=== PATIENT | female | born 1965 | race Caucasian/White ===

== ENCOUNTER 2016-05-29 11:30 | Emergency (ER) | payer OTHER, MEDICAID ==
--- NOTE | 2016-05-29 12:07 | Emergency Department Record ---
History of Present Illness - General Chief Complaint: Difficulty Breathing Stated Complaint: RENEE Time Seen by Provider: 05/29/16 12:07 Source: Patient Mode of Arrival: Ambulatory Limitations: No limitations - History of Present Illness Initial Comments: The patient is here due to a 3 day hx of cough, congestion, sputum production and SOB intermittently. She also has a runny nose and ST. The patient has been ill for 3 days and was having a lot of SOB earlier today but that has gone now. Complaint: Cough Onset/Timin -: Days(s) Consistency: Constant Improves With: Nothing Worsens With: Coughing, Exertion Context: Recent URI Associated Symptoms: Denies other symptoms Treatments Prior to Arrival: None - Related Data Home Oxygen Therapy: No Home Medications Medication Instructions Recorded Confirmed Last Taken Diltiazem HCl [Cardizem] 120 mg PO DAILY 03/19/16 05/29/16 03/19/16 Duloxetine HCl [Cymbalta] 60 mg PO DAILY 03/19/16 05/29/16 03/19/16 Hydrochlorothiazide [Hctz 12.5MG] 12.5 mg PO DAILY 03/19/16 05/29/16 03/19/16 Methylphenidate HCl [Concerta] 36 mg PO DAILY 03/19/16 05/29/16 03/19/16 Omeprazole [Prilosec] 20 mg PO DAILY 03/19/16 05/29/16 03/19/16 Mirtazapine [Mirtazapine] 15 mg PO QHS 05/29/16 05/29/16 05/28/16 Previous Rx's Medication Instructions Recorded Meclizine HCl [Antivert] 25 mg PO Q8H #20 tablet 03/19/16 Mupirocin [Bactroban] 1 apply TP TID #1 tube 03/19/16 Albuterol Sulfate [Proair Hfa] 2 puff IH QID PRN #1 inhaler 05/29/16 Benzonatate [Tessalon] 1 cap PO Q8H PRN #15 cap 05/29/16 Doxycycline Monohydrate [Mondoxyne 100 mg PO BID #14 capsule 05/29/16 Nl] Prednisone [Prednisone 20Mg] 40 mg PO DAILY #10 tab 05/29/16 Allergies Allergy/AdvReac Type Severity Reaction Status Date / Time Sulfa (Sulfonamide Allergy SWELLING Verified 03/19/16 16:40 Antibiotics) OF THE FACE Travel Screening - Travel/Exposure Within Last 30 Days Have you traveled within the last 30 days?: No - Travel/Exposure Within Last Year Have you traveled outside the [place] in the last year?: No - Additonal Travel Details Have you been exposed to anyone with a communicable illness?: No - Travel Symptoms Symptom Screening: None Review of Systems Constitutional: Denies: Chills, Fever Eyes: Denies: Eye discharge Respiratory: Reports: Cough, Dyspnea Cardiovascular: Denies: Chest pain Past Medical History - SOCIAL HISTORY Smoking Status: Never smoker Alcohol Use: Occassional Drug Use: None - RESPIRATORY Hx Respiratory Disorders: Yes - CARDIOVASCULAR Hx Cardio Disorders: Yes Hx Abnormal EKG: Yes Hx Chest Pain: Yes (last week) Hx Hypertension: Yes Hx Irregular Heartbeat: Yes (AFib) Comment:: last stress test/EKG/health analyst visit approx 5 yrs ago - NEURO Hx Neuro Disorders: Yes Hx Headaches: Yes Hx of Migraines: Yes - GI Hx GI Disorders: Yes Hx Abdominal Pain: Yes Hx Reflux: Yes Hx Nausea/Vomiting: Yes Comment:: c/o abn bowel habits - Hx Genitourinary Disorders: No Comment:: hyst - ENDOCRINE Hx Endocrine Disorders: No - MUSCULOSKELETAL Hx Musculoskeletal Disorders: Yes Hx Arthritis: Yes - PSYCH Hx Psych Problems: Yes Hx Anxiety: Yes Hx Depression: Yes - HEMATOLOGY/ONCOLOGY Hx Hematology/Oncology Disorders: Yes Hx Blood Transfusions: Yes (at childbirth) Family Medical History Any Significant Family History?: No Physical Exam - General General Appearance: Alert, Oriented x3, Cooperative, No acute distress - Head Head exam: Atraumatic, Normocephalic, Normal inspection - Eye Eye exam: Normal appearance, PERRL - ENT ENT exam: TM's normal bilaterally. negative: Normal exam, Normal orophraynx Nasal Exam: Discharge. negative: Normal inspection Throat exam: Tonsillar erythema. negative: Normal inspection, Tonsillomegaly, Tonsillar exudate - Neck Neck exam: Normal inspection, Full ROM. negative: Lymphadenopathy, Meningismus , Tenderness - Respiratory Respiratory exam: Normal lung sounds bilaterally. negative: Decreased breath sounds, Respiratory distress, Rhonchi, Stridor, Wheezes - Cardiovascular Cardiovascular Exam: Regular rate, Normal rhythm, Normal heart sounds - Extremities Extremities exam: Normal inspection, Full ROM, Normal capillary refill. negative: Tenderness - Neurological Neurological exam: Alert, Normal gait. negative: Abnormal gait, Motor sensory deficit Course Vital Signs 05/29/16 11:47 Temperature 99.2 F Pulse Rate 96 H Respiratory 18 Rate Blood Pressure 125/89 Pulse Ox 97 - Reevaluation(s) Reevaluation #1: The patient is doing well. She is still coughing but having no trouble breathing at this time. On exam her lungs are clear. I did explain to her the Flu test is Pos. She is concerned about the very productive sputum so we will provide an Abx for home if she is not better in 2-3 days. 05/29/16 13:44 Medical Decision Making - Data Complexity MDM Data: Labs Ordered and/or Reviewed (Flu A pos.), X-Ray Ordered and/or Reviewed - Radiology Data Radiology results: Report reviewed (CXR: Neg.) Disposition Disposition: Discharge Clinical Impression: Influenza A Disposition: Home, Self-Care Condition: (1) Good Instructions: Influenza (ED) Additional Instructions: Please use Tylenol and Motrin for fever and body aches. Take the Albuterol, Tessalon and Prednisone as directed. Please start the doxy if not better in 2 days or for a worsening cough. Prescriptions: Doxycycline Monohydrate [Mondoxyne Nl] 100 mg PO BID #14 capsule Prednisone [Prednisone 20Mg] 40 mg PO DAILY #10 tab Albuterol Sulfate [Proair Hfa] 2 puff IH QID PRN #1 inhaler PRN Reason: Cough And Difficulty Breathing Benzonatate [Tessalon] 1 cap PO Q8H PRN #15 cap PRN Reason: Cough Forms: Patient Portal Access Time of Disposition: 13:47
[2016-05-29] MEDS ORDERED: IPRATROPIUM/ALBUTEROL (0.5MG/3MG) NEB INH ONE (12:16)
[2016-05-29 12:51] LABS: INFLUENZA A POSITIVE (NEGATIVE); INFLUENZA B NEGATIVE (NEGATIVE)
--- NOTE | 2016-06-02 04:21 | RADIOLOGY REPORT ---
EXAM: CHEST 2 VIEWS HISTORY: PATIENT HAS CHRONIC COUGH AND CHEST TIGHTNESS. SHORTNESS OF BREATH FOR THREE DAYS. TECHNIQUE: Two views of the chest are provided along comparison study dated . FINDINGS: The cardiomediastinal silhouette is within normal limits for size and contour. Lluvia appear unremarkable. There is no radiographic evidence of a focal infiltrate or pleural effusion. No pneumothorax is noted. IMPRESSION: NO RADIOGRAPHIC EVIDENCE OF AN ACUTE INTRATHORACIC PROCESS. JOB NUMBER: [id number] [facility]
== END 2016-05-29 14:10 | disposition home or self-care (01) ==
LOC: ER 11:30
DX: J10.1 Influenza due to other identified influenza virus with other respiratory manifestations (principal); R06.00 Dyspnea, unspecified
CPT/HCPCS: 71020; 87400; 94640; 99283; 99284